=== PATIENT | female | born 2000 | race African-American/Black ===

== ENCOUNTER 2019-02-11 13:21 | Emergency (ER) | payer OTHER ==
[2019-02-11 13:38] VITALS: BP 125/79; PULSE 76; TEMP 97.8; BMI 47.6
[2019-02-11] MEDS ORDERED: ONDANSETRON *ODT* 4 MG TABLET SL ONE (14:46)
[2019-02-11] MEDS ORDERED: ONDANSETRON *ODT* 4 MG TABLET ONE (15:01)
--- NOTE | 2019-02-11 15:02 | PDOC ---
History of Present Illness - General Chief Complaint: Pain, Acute Stated Complaint: ABD PAIN Time Seen by Provider: 02/11/19 14:24 History Source: Patient Exam Limitations: No Limitations - History of Present Illness Initial Comments: 02/11/19 14:55 Patient is a 18 y/o female with no past medical history who presents for diarrhea and abdominal pain. patient reports her symptoms began about a week ago. She is a college student and eats cafeteria food. She denies fever or chills. She describes the abdominal pain as dull and midepigastric. She has the pain, has to go to the bathroom, and then the pain resolves. The episodes have been less frequent with only one episode yesterday. She denies nausea and its able to tolerate liquids. Patient has no other acute complaints. Past History - Past Medical History Allergies/Adverse Reactions: Allergies Allergy/AdvReac Type Severity Reaction Status Date / Time No Known Allergies Allergy Verified 02/11/19 13:32 Home Medications: Ambulatory Orders Ondansetron HCl [Zofran] 8 mg PO Q8H PRN #20 tablet 02/11/19 Asthma: No Cancer: No Cardiac Disorders: No CVA: No COPD: No CHF: No DVT: No Dementia: No Diabetes: No - Suicide/Smoking/Psychosocial Hx Smoking History: Never smoked Have you smoked in the past 12 months: No Information on smoking cessation initiated: No Hx Alcohol Use: No Drug/Substance Use Hx: No Review of Systems - Review of Systems Constitutional: No: Chills, Fever HEENTM: No: Eye Pain Respiratory: No: Cough, Shortness of Breath Cardiac (ROS): No: Chest Pain ABD/GI: Yes: Diarrhea. No: Abdominal Distended, Blood Streaked Bowels, Constipated, Nausea, Vomiting : No: Burning, Dysuria Musculoskeletal: No: Back Pain *Physical Exam - Vital Signs Last Vital Signs Temp Pulse Resp BP Pulse Ox 97.8 F 76 20 125/79 98 02/11/19 13:32 02/11/19 13:32 02/11/19 13:32 02/11/19 13:32 02/11/19 13:32 - Physical Exam Comments: 02/11/19 15:04 GENERAL; A&O x3, obese HEART: RRR, no murmurs, rubs or gallops LUNGS: CTAL B/L ABD: soft, non distended, non tender, normoactive bowel sounds EXTREMITIES: no pitting edema SKIN: no rashes or ulcers noted Medical Decision Making - Medical Decision Making 02/11/19 15:41 Patient able to tolerate PO UA WNL Zofran helped, vitals stable for DC *DC/Admit/Observation/Transfer Diagnosis at time of Disposition: Diarrhea Qualifiers: Diarrhea type: unspecified type Qualified Code(s): R19.7 - Diarrhea, unspecified - Discharge Dispostion Disposition: HOME Condition at time of disposition: Good - Prescriptions Prescriptions: Ondansetron HCl [Zofran] 8 mg PO Q8H PRN #20 tablet PRN Reason: Nausea - Referrals Referrals: Saad Peoples MD [Primary Care Provider] - - Patient Instructions Printed Discharge Instructions: Diarrhea Additional Instructions: You presented today for abdominal pain and diarrhea. This is likely due to a viral illness. Your symptoms are getting better and you should continue to eat bland foods and drink a lot fluids. We have prescribed you Zofran to help with any nausea or abdominal discomfort. Please take 8 mg by mouth every 8 hours as needed, do not exceed 4 pills a day Return to the Emergency Department if your diarrhea worsens, you have dizziness , nausea, vomiting, change in vision, chest pain, or shortness of breath. - Post Discharge Activity
[2019-02-11 15:19] LABS: HCG,QUALITATIVE URINE Negative
[2019-02-11 15:20] LABS: EPI CELLS 7.6 /HPF (0-5); HYALINE CASTS 12 /hpf (0-8); PH,URINE 6.5 (5.0-8.0); URINE APPEARANCE CLEAR; URINE BACTERIA 203.1 /hpf (NEGATIVE); URINE BILIRUBIN NEGATIVE (NEGATIVE); URINE COLOR YELLOW; URINE GLUCOSE (UA) NEGATIVE (NEGATIVE); URINE KETONE TRACE (NEGATIVE); URINE LEUK ESTERASE TRACE (NEGATIVE); URINE NITRITE NEGATIVE (NEGATIVE); URINE PROTEIN TRACE (NEGATIVE); URINE RBC 2 /hpf (0-4); URINE WBC 8 /hpf (0-5)
--- NOTE | 2019-02-11 15:32 | PDOC ---
Attending Attestation - Resident Resident Name: Linda Pineda - ED Attending Attestation I have performed the following: I have examined & evaluated the patient, The case was reviewed & discussed with the resident, I agree w/resident's findings & plan - HPI HPI: 02/11/19 15:29 18-year-old female with no medical history presenting with 1 week of diarrhea which has since been resolving. No abdominal pain, nausea or vomiting, fevers or chills. She notes she did eat cafeteria food as possible suspicious food intake a week ago when she was at [employer] in [place]. No sick contacts. Normal bowel movements. Tolerating oral intake with effect. - Physicial Exam PE: 02/11/19 15:29 Agree with the resident's HPI and PE as documented in the electronic medical record. NAD, well appearing, PERRL, EOMI, MMM, nl conjunctiva, anicteric; neck supple. lungs clear, RRR, abdomen soft nontender. BURDICK x4, no focal neuro deficits. No peripheral edema. normal color for ethnicity, WWP. - Medical Decision Making 02/11/19 15:30 hpi as documented. Vital signs within normal limits, no fevers Patient is well-appearing without any distress, abdomen is soft and benign, mildly obese but no peritoneal findings. No episodes of vomiting here, taking oral intake without difficulty and comfortable in bed. Most likely resolving gastroenteritis versus food poisoning. UA neg for significant ketones or s/s dehydration or infection. neg preg test c/w supportive care, hydration and otc meds as needed for pain avoid triggers rx zofran prn for n/v if it occurs Pt informed of my clinical impression, treatment recommendations and disposition plan. All questions answered to patient's satisfaction and expressed understanding and comfort with this. Reasons for returning to the ED sooner discussed with the patient otherwise, follow up with primary care physician. At the time of discharge, the patient is alert, clinically improved, tolerating po and verbalizes understanding of instructions. Patient does not suffer from an acute life-threatening medical condition at this time she is safe for outpatient follow-up. 02/11/19 15:31 02/11/19 15:32
== END 2019-02-11 15:49 | disposition home or self-care (01) ==
LOC: JER 13:21
DX: R19.7 Diarrhea, unspecified (principal)
CPT/HCPCS: 81003; 84703; 99282-25; Q0162